=== PATIENT | male | born 1955 | race Caucasian/White ===

== ENCOUNTER 2017-09-17 17:15 | Emergency (ER) | payer BC, OTHER ==
[2017-09-17 17:20] VITALS: BP 155/95; PULSE 97; TEMP 97.3; BMI 25.0
[2017-09-17] MEDS ORDERED: IBUPROFEN 600 MG TABLET (FP) PO ONE ×2 (17:21→18:52)
--- NOTE | 2017-09-17 17:22 | PDOC ---
Rapid Medical Evaluation Chief Complaint: Sore Throat Time Seen by Provider: 09/17/17 17:19 Medical Evaluation: Allergies Allergy/AdvReac Type Severity Reaction Status Date / Time No Known Allergies Allergy Verified 09/17/17 17:17 12 17:19 The patient presents with a chief complaint of: Throat pain and ear ache 4 days I have performed a brief in-person evaluation of this patient; Pertinent physical exam findings:Posterior erythema of the pharynx I have ordered the following: Rapid Strep, Motrin The patient will proceed to the ED for further evaluation.
--- NOTE | 2017-09-17 18:15 | PDOC ---
History of Present Illness - General Chief Complaint: Sore Throat Stated Complaint: EAR/FACIAL PAIN Time Seen by Provider: 09/17/17 17:19 History Source: Patient Exam Limitations: No Limitations - History of Present Illness Initial Comments: 09/17/17 18:29 61-year-old male with no medical history presents to the emergency department complaining of right earache/sore throat 4 days without fever, chills, nausea/ vomiting/diarrhea, headache, dizziness, lightheadedness, facial pain, cough, chest pain, shortness of breath, neck/back pains, abdominal pains, flank pains, urinary symptoms. Pain is alleviated minimally with Motrin and there are no exacerbating factors. Patient denies difficulty swallowing/eating. Timing/Duration: other (x4d) Associated Symptoms: reports: other (right earache). denies: fever/chills Past History - Past Medical History Allergies/Adverse Reactions: Allergies Allergy/AdvReac Type Severity Reaction Status Date / Time No Known Allergies Allergy Verified 09/17/17 17:17 Home Medications: Ambulatory Orders No Home Medications 0 dose .ROUTE UTDICT 10/01/13 COPD: No - Immunization History Immunization Up to Date: No - Suicide/Smoking/Psychosocial Hx Smoking History: Never smoked Have you smoked in the past 12 months: No Information on smoking cessation initiated: No Hx Alcohol Use: No Drug/Substance Use Hx: No Substance Use Type: None Review of Systems - Review of Systems Able to Perform ROS?: Yes Comments:: 09/17/17 18:30 CONSTITUTIONAL: Absent: fever, chills, diaphoresis, generalized weakness, malaise, loss of appetite HEENT: +right earache/ Sore throat Absent: rhinorrhea, nasal congestion, throat swelling, difficulty swallowing, mouth swelling, eye pain, visual Changes CARDIOVASCULAR: Absent: chest pain, loss of consciousness, palpitations, irregular heart rate, peripheral edema RESPIRATORY: Absent: cough, shortness of breath, dyspnea with exertion, orthopnea, wheezing, stridor, hemoptysis GASTROINTESTINAL: Absent: abdominal pain, abdominal distension, nausea, vomiting, diarrhea, constipation, melena, hematochezia GENITOURINARY: Absent: dysuria, frequency, urgency, hesitancy, hematuria, flank pain, genital pain MUSCULOSKELETAL: Absent: myalgia, arthralgia, joint swelling SKIN: Absent: rash, itching, pallor HEMATOLOGIC/IMMUNOLOGIC: Absent: easy bleeding, easy bruising, lymphadenopathy, frequent infections ENDOCRINE: Absent: unexplained weight gain, unexplained weight loss, heat intolerance, cold intolerance NEUROLOGIC: Absent: headache, focal weakness or paresthesias, dizziness, unsteady gait, seizure, mental status changes, bladder or bowel incontinence Is the patient limited Spanish proficient: No *Physical Exam - Vital Signs Last Vital Signs Temp Pulse Resp BP Pulse Ox 97.3 F L 97 H 18 155/95 100 09/17/17 17:18 09/17/17 17:18 09/17/17 17:18 09/17/17 17:18 09/17/17 17:18 - Physical Exam Comments: 09/17/17 18:30 GENERAL: Well developed, well nourished. Awake and alert. No acute distress. HEENT: Right ear: TM:exudate/erythema/bulging. Right ear canal; slight swelling with mild erythematous Thorat: neg erythema/exudates/swelling Normocephalic, atraumatic. PERRLA, EOMI. No conjunctival pallor. Sclera are non- icteric. Moist mucous membranes. Oropharynx is clear. NECK: Supple. Full ROM. No JVD. Carotid pulses 2+ and symmetric, without bruits. No thyromegaly. No lymphadenopathy. CARDIOVASCULAR: Regular rate and rhythm. No murmurs, rubs, or gallops. Distal pulses are 2+ and symmetric. PULMONARY: No evidence of respiratory distress. Lungs clear to auscultation bilaterally. No wheezing, rales or rhonchi. ABDOMINAL: Soft. Non-tender. Non-distended. No rebound or guarding. No organomegaly. Normoactive bowel sounds. MUSCULOSKELETAL Normal range of motion at all joints. No bony deformities or tenderness. No CVA tenderness. EXTREMITIES: No cyanosis. No clubbing. No edema. No calf tenderness. SKIN: Warm and dry. Normal capillary refill. No rashes. No jaundice. ED Treatment Course - ADDITIONAL ORDERS Additional order review: 09/17/17 17:20 Group A Strep Rapid Antigen - Final Throat *DC/Admit/Observation/Transfer Diagnosis at time of Disposition: Otitis externa Qualifiers: Otitis externa type: noninfectious Noninfectious otitis externa type: unspecified noninfectious type Chronicity: acute Laterality: right Qualified Code(s): H60.501 - Unspecified acute noninfective otitis externa, right ear Otitis media Qualifiers: Otitis media type: unspecified Chronicity: acute Qualified Code(s): H66.90 - Otitis media, unspecified, unspecified ear - Discharge Dispostion Disposition: HOME Condition at time of disposition: Stable Admit: No - Referrals Referrals: Otto Blake MD [Staff Physician] - - Patient Instructions Printed Discharge Instructions: Middle Ear Infection, DI for Otitis Externa Additional Instructions: Take your antibiotics as directed/ Amoxicillin and Corticosporin Tylenol or Motrin as needed for pain every 8 hours as needed MUST FOLLOW UP WITH ENT/DR. BLAKE Return to the ER for severe/persistent/worsening symptoms - Post Discharge Activity
[2017-09-17] MEDS ORDERED: AMOX TR/POT CLAV 875MG/125MG TABLETS (FP) PO ONE (18:40)
[2017-09-17] MEDS ORDERED: NEOMYCIN/POLYMYXN/HC OTIC SUSPENSION 10 ML BOTTLE AD ONE (18:40)
[2017-09-17] MEDS ORDERED: NEOMYCIN/POLYMYXN/HC OTIC SOLUTION 10 ML BOTTLE ONE (18:52)
[2017-09-17] MEDS ORDERED: AMOX TR/POT CLAV 875MG/125MG TABLETS (FP) ONE (18:52)
== END 2017-09-17 18:57 | disposition home or self-care (01) ==
LOC: JERFT 17:15
DX: H66.90 Otitis media, unspecified, unspecified ear (principal); H60.501 Unspecified acute noninfective otitis externa, right ear
CPT/HCPCS: 87070; 87430; 99281-25

== ENCOUNTER 2018-06-03 14:38 | Emergency (ER) | payer BC, OTHER ==
[2018-06-03 14:47] VITALS: BP 136/85; PULSE 83; TEMP 98.8; BMI 25.0
--- NOTE | 2018-06-03 14:50 | PDOC ---
Rapid Medical Evaluation Time Seen by Provider: 06/03/18 14:44 Medical Evaluation: Allergies Allergy/AdvReac Type Severity Reaction Status Date / Time No Known Allergies Allergy Verified 09/17/17 17:17 06/03/18 14:45 62-year-old male with no significant PMH presenting with 3 days painful rash to left chest wall and back. Alert, oriented, no distress. RRR, S1/S2, no murmurs. Lungs CTAB. Vesicular rash in C6 dermatomal pattern consistent with shingles. To for further evaluation.
--- NOTE | 2018-06-03 15:15 | PDOC ---
History of Present Illness - General Chief Complaint: Rash Stated Complaint: SHINGLES Time Seen by Provider: 06/03/18 14:44 History Source: Patient Exam Limitations: No Limitations - History of Present Illness Initial Comments: Patient is a 62-year-old male who states that over the past 2 days he has had a painful rash on his left flank and left abdomen. Patient denies contacts with a similar rash. He describes the pain as a stinging sensation rates at a 6 out of 10. Denies any aggravating or relieving factors. 06/03/18 15:10 Past History - Travel Traveled outside of the country in the last 30 days: No Close contact w/someone who was outside of country & ill: No - Past Medical History Allergies/Adverse Reactions: Allergies Allergy/AdvReac Type Severity Reaction Status Date / Time No Known Allergies Allergy Verified 09/17/17 17:17 Home Medications: Ambulatory Orders No Home Medications 0 dose .ROUTE UTDICT 10/01/13 Hydrocodone/Acetaminophen [[place] 5-325 Tablet] 1 tab PO TID 7 Days #15 tablet MDD 3 06/03/18 Valacyclovir HCl [Valtrex] 1,000 mg PO TID 7 Days #21 tablet 06/03/18 COPD: No DVT: No - Immunization History Immunization Up to Date: No - Suicide/Smoking/Psychosocial Hx Smoking History: Never smoked Have you smoked in the past 12 months: No Information on smoking cessation initiated: No Hx Alcohol Use: No Drug/Substance Use Hx: No Substance Use Type: None Review of Systems - Review of Systems Able to Perform ROS?: Yes Constitutional: No: Chills, Fever Integumentary: Yes: Lesions, Rash All Other Systems: Reviewed and Negative *Physical Exam - Vital Signs Last Vital Signs Temp Pulse Resp BP Pulse Ox 98.8 F 83 18 136/85 100 06/03/18 14:45 06/03/18 14:45 06/03/18 14:45 06/03/18 14:45 06/03/18 14:45 - Physical Exam Comments: Constitutional: VS stated, pt appears in no apparent distress; sitting in chair. Skin: Warm and dry. Patient has a diffuse vesicular rash on the left flank and left upper quadrant. No signs of secondary infection. Head: Normocephalic; atraumatic Eyes:conjunctiva pink without injection or discharge. Throat: Oropharynx with pink and moist mucosa. Lungs: Bilateral breath sounds clear upon auscultation. No adventitious breath sounds. Heart: Regular rate and rhythm, S1/S2 auscultated. No murmurs, rubs, or gallops. No visible pulsations, heaves, or lifts on precordium. Musculoskeletal: Moves all extremities without difficulty. Neurologic: Awake, alert. Conversation fluent 06/03/18 15:11 *DC/Admit/Observation/Transfer Diagnosis at time of Disposition: Herpes zoster - Discharge Dispostion Disposition: HOME Condition at time of disposition: Stable Decision to Admit order: No - Prescriptions Prescriptions: Hydrocodone/Acetaminophen [[place] 5-325 Tablet] 1 tab PO TID 7 Days #15 tablet MDD 3 Valacyclovir HCl [Valtrex] 1,000 mg PO TID 7 Days #21 tablet - Referrals - Patient Instructions Printed Discharge Instructions: DI for Shingles Additional Instructions: Take Valtrex as directed. Take pain medicine as directed. The pain medicine is sedating and constipating. Do not drive, drink alcohol or work while taking this medication. Follow-up with his PCP. - Post Discharge Activity
== END 2018-06-03 15:27 | disposition home or self-care (01) ==
LOC: JERFT 14:38
DX: B02.9 Zoster without complications (principal)
CPT/HCPCS: 99281-25

== ENCOUNTER 2021-12-07 13:44 | Emergency (ER) | payer OTHER ==
[2021-12-07 13:58] VITALS: TEMP 98; BMI 28.3
[2021-12-07] MEDS ORDERED: ACETAMINOPHEN 1000 MG/100 ML BAG IVPB ONE (14:55)
[2021-12-07] MEDS ORDERED: SODIUM CHLORIDE 0.9% 500 ML INFUS.BAG IV ONE (14:56)
[2021-12-07] MEDS ORDERED: ACETAMINOPHEN 500 MG TABLET (FP) PO ONE (15:19)
[2021-12-07] MEDS ORDERED: ACETAMINOPHEN 325 MG TABLET (FP) ONE (16:07)
[2021-12-07 16:12] LABS: BASO % 0.4 % (0-2.0); EOS % 2.1 % (0-4.5); HEMATOCRIT 42.6 % (35.4-49); HEMOGLOBIN 14.7 GM/dL (11.7-16.9); LYMPH % 27.8 % (8-40); MCH 30.6 pg (25.7-33.7); MCHC 34.6 g/dl (32.0-35.9); MEAN CELL VOLUME 88.5 fl (80-96); MEAN PLT VOLUME 6.8 fl (7.5-11.1); MONO % 8.4 % (3.8-10.2); NEUT % 61.3 % (42.8-82.8); PLATELET COUNT 289 10^3/uL (134-434); RBC 4.81 M/mm3 (4.00-5.60); RDW 13.1 % (11.9-15.9); WHITE BLOOD COUNT 5.8 K/mm3 (4.0-10.0)
[2021-12-07 16:24] LABS: INR 1.03 (0.83-1.09); PROTHROMBIN TIME (PATIENT) 11.9 SEC (9.7-13.0)
[2021-12-07 16:26] LABS: ACTIVATED PTT 34.4 SECONDS (25.2-36.5)
[2021-12-07 16:45] LABS: ALBUMIN 4.3 g/dl (3.4-5.0); BLOOD UREA NITROGEN 12.1 mg/dL (7-18)
[2021-12-07 16:48] LABS: PH,URINE 6.5 (5.0-8.0); URINE APPEARANCE CLEAR; URINE BILIRUBIN NEGATIVE (NEGATIVE); URINE COLOR YELLOW; URINE GLUCOSE (UA) NEGATIVE (NEGATIVE); URINE KETONE NEGATIVE (NEGATIVE); URINE LEUK ESTERASE NEGATIVE (NEGATIVE); URINE NITRITE NEGATIVE (NEGATIVE); URINE PROTEIN NEGATIVE (NEGATIVE); URINE UROBILINOGEN 0.2 mg/dL (0.2-1.0)
[2021-12-07 16:48] LABS: CREATININE 0.7 mg/dL (0.55-1.3)
[2021-12-07 16:49] LABS: BILIRUBIN,TOTAL 0.5 mg/dL (0.2-1); TOT PROT 7.7 g/dl (6.4-8.2)
[2021-12-07] MEDS ORDERED: cefTRIAXone SODIUM 1 GM VIAL ONE (20:49)
[2021-12-07 21:24] VITALS: BP 132/88; PULSE 84
== END 2021-12-07 21:37 | disposition home or self-care (01) ==
LOC: JER 13:44
PROC: 3E023GC Introduction of Other Therapeutic Substance into Muscle, Percutaneous Approach (ICD-10-PCS; principal; 2021-12-07)
DX: R10.32 Left lower quadrant pain (principal); N50.812 Left testicular pain
CPT/HCPCS: 36415; 74177-TC; 76870-TC; 80053; 81003; 82272; 83605; 85025; 85610; 85730; 86850; 86900; 86901; 87086; 96372; 99285-25; Q9967

== ENCOUNTER 2021-12-27 05:32 | Day surgery (SDC) | payer OTHER ==
[2021-12-20 14:22] VITALS: BMI 30.7
[2021-12-27 11:53] VITALS: BP 114/84; PULSE 65; TEMP 97.5
== END 2021-12-27 12:36 | disposition home or self-care (01) ==
LOC: JASU-ENDO 05:32
PROVIDERS: ATTEND Internal Medicine Gastroenterology
PROC: 0DB68ZX Excision of Stomach, Via Natural or Artificial Opening Endoscopic, Diagnostic (ICD-10-PCS; 2021-12-27)
PROC: 0DB48ZX Excision of Esophagogastric Junction, Via Natural or Artificial Opening Endoscopic, Diagnostic (ICD-10-PCS; principal; 2021-12-27 09:45)
DX: K29.50 Unspecified chronic gastritis without bleeding (principal)
CPT/HCPCS: 88305-TC; 88342-TC